=== PATIENT | male | born 1990 | race Caucasian/White ===

== ENCOUNTER 2016-10-27 00:43 | Emergency (ER) | payer OTHER ==
[2016-10-27 03:32] LABS: Hematocrit 48 % (42-52); Hemoglobin 15.8 g/dl (14.0-18.0); Mean Corpuscular HGB Conc 33 g/dl (31-36); Mean Corpuscular Hemoglobin 31 pg (27-31); Mean Corpuscular Volume 92 fL (80-94); Mean Platelet Volume 9 um3 (7.4-10.4); Red Blood Count 5.18 10^6/ul (4.0-5.4); Red Cell Distribution Width 13 % (10.5-15); White Blood Count 7.8 10^3/ul (3.5-10.8)
[2016-10-27 03:43] LABS: Albumin 4.2 g/dL (3.2-5.2); Calcium 9.6 mg/dL (8.6-10.3); EGFR African American 104.5 (>60); EGFR Non-African American 81.2 (>60); Globulin 2.9 g/dL (2-4); Potassium 4.3 mmol/L (3.5-5.0); Total Bilirubin 0.5 mg/dL (0.2-1.0); Total Protein 7.1 g/dL (6.4-8.9)
--- NOTE | 2016-10-27 04:59 | ED ---
Aubrey Wynn Rebecca, scribed for Nehemiah Cutler MD on 10/27/16 at 0306 . Upper Extremity Pain - HPI Summary HPI Summary: Pt is a 25 y/o M who presents to ED c/o LUE and LLE numbness (triage note states R-sided, pt explicitly reported L-sided). Sx began at 2230 last night and have been constant since onset, improving at approximately 0030. Additionally c/o tongue numbness/tingling and a "taste like iron" both of which resolved at 0030. Denies fever. Sx aggravated by nothing, alleviated by spontaneous resolution. - History of Current Complaint Chief Complaint: EDExtremityUpper Stated Complaint: RIGHT ARM NUMBNESS Hx Obtained From: Patient Onset/Duration: Started Hours Ago, Still Present Timing: Constant Severity Currently: None - No pain Pain Location: Arm - LUE, Other: - LLE Aggravating Factor(s): Nothing Alleviating Factor(s): Other - Spontaneous reoslution Associated Signs & Symptoms: Positive: Numbness/Tingling - LUE and LLE, Other - Tongue swelling, taste of iron - Allergies/Home Medications Allergies/Adverse Reactions: Allergies Allergy/AdvReac Type Severity Reaction Status Date / Time Bee Venom Allergy Hives Verified 10/27/16 01:23 PMH/Surg Hx/FS Hx/Imm Hx Endocrine/Hematology History: Denies: Hx Diabetes Cardiovascular History: Reports: Hx Hypertension Denies: Hx Hypercholesterolemia - Immunization History Date of Tetanus Vaccine: unk Date of Influenza Vaccine: unk Infectious Disease History: No Infectious Disease History: Denies: Traveled Outside the [place] in Last 30 Days - Family History Known Family History: Positive: Hypertension - Social History Alcohol Use: Occasionally Substance Use Type: Reports: None Smoking Status (MU): Never Smoked Tobacco Review of Systems Negative: Fever Positive: Other - Tongue numbness/tingling and taste of iron - resolved Positive: Numbness - LUE and LLE numbness All Other Systems Reviewed And Are Negative: Yes Physical Exam Triage Information Reviewed: Yes Vital Signs On Initial Exam: Initial Vitals Temp Pulse Resp Pulse Ox 98.3 F 85 16 99 10/27/16 00:45 10/27/16 00:45 10/27/16 00:45 10/27/16 00:45 Vital Signs Reviewed: Yes Appearance: Positive: Well-Appearing, No Pain Distress Skin: Positive: Warm Head/Face: Positive: Normal Head/Face Inspection Eyes: Positive: EOMI, MÓNICA ENT: Positive: Hearing grossly normal Neck: Positive: Supple Respiratory/Lung Sounds: Positive: Clear to Auscultation, Breath Sounds Present Cardiovascular: Positive: RRR Abdomen Description: Positive: Nontender, Soft Bowel Sounds: Positive: Present Musculoskeletal: Positive: Normal, Strength/ROM Intact Neurological: Positive: Sensory/Motor Intact, Alert, Oriented to Person Place, Time, Normal Gait Psychiatric: Positive: Affect/Mood Appropriate - [place] Coma Scale Coma Scale Total: 15 Diagnostics - Vital Signs Vital Signs Temp Pulse Resp BP Pulse Ox 10/27/16 01:21 98.5 F 88 18 139/81 99 10/27/16 00:45 98.3 F 85 16 99 - Laboratory Lab Results: Lab Results 10/27/16 10/27/16 Range/Units 03:21 03:21 WBC 7.8 (3.5-10.8) 10^3/ul RBC 5.18 (4.0-5.4) 10^6/ul Hgb 15.8 (14.0-18.0) g/dl Hct 48 (42-52) % MCV 92 (80-94) fL MCH 31 (27-31) pg MCHC 33 (31-36) g/dl RDW 13 (10.5-15) % Plt Count 234 (150-450) 10^3/ul MPV 9 (7.4-10.4) um3 Neut % (Auto) 53.9 (38-83) % Lymph % (Auto) 35.9 (25-47) % Mcintosh % (Auto) 7.3 (1-9) % Eos % (Auto) 2.2 (0-6) % Baso % (Auto) 0.7 (0-2) % Absolute Neuts (auto) 4.2 (1.5-7.7) 10^3/ul Absolute Lymphs (auto) 2.8 (1.0-4.8) 10^3/ul Absolute Monos (auto) 0.6 (0-0.8) 10^3/ul Absolute Eos (auto) 0.2 (0-0.6) 10^3/ul Absolute Basos (auto) 0.1 (0-0.2) 10^3/ul Absolute Nucleated RBC 0 10^3/ul Nucleated RBC % 0 Sodium 135 (133-145) mmol/L Potassium 4.3 (3.5-5.0) mmol/L Chloride 102 (101-111) mmol/L Carbon Dioxide 28 (22-32) mmol/L Anion Gap 5 (2-11) mmol/L BUN 19 (6-24) mg/dL Creatinine 1.12 (0.67-1.17) mg/dL Est GFR ( Amer) 104.5 (>60) Est GFR (Non-Af Amer) 81.2 (>60) BUN/Creatinine Ratio 17.0 (8-20) Glucose 111 H (70-100) mg/dL Calcium 9.6 (8.6-10.3) mg/dL Total Bilirubin 0.50 (0.2-1.0) mg/dL AST 17 (13-39) U/L ALT 26 (7-52) U/L Alkaline Phosphatase 77 (34-104) U/L Total Protein 7.1 (6.4-8.9) g/dL Albumin 4.2 (3.2-5.2) g/dL Globulin 2.9 (2-4) g/dL Albumin/Globulin Ratio 1.4 (1-3) Result Diagrams: 10/27/16 03:21 10/27/16 03:21 Lab Statement: Any lab studies that have been ordered have been reviewed, and results considered in the medical decision making process. - CT Brain CT CT Interpretation: No Acute Changes - Normal head CT Interpretation Completed By: Radiologist Re-Evaluation - Re-Evaluation First Eval Change: Improved - results d/w pt Course/Dx - Course Assessment/Plan: Pt is a 25 y/o M who presents to ED c/o LUE and LLE numbness ( triage note states R-sided, pt explicitly reported L-sided). Sx began at 2230 last night and have been constant since onset, improving at approximately 0030. Additionally c/o tongue numbness/tingling and a "taste like iron" both of which resolved at 0030. Denies fever. Sx aggravated by nothing, alleviated by spontaneous resolution. Brain CT reveals no acute findings. Pt will be D/C to home with Dx of paresthesia. He understands and agrees. - Diagnoses Provider Diagnoses: Paresthesia Discharge - Discharge Plan Condition: Stable Disposition: HOME Patient Education Materials: Paresthesia (ED) Referrals: Azael Riddle MD [Primary Care Provider] - 3 Days The documentation as recorded by the Aubrey esposito Rebecca accurately reflects the service I personally performed and the decisions made by me, Nehemiah Cutler MD.
[2016-10-27 05:30] VITALS: BP 129/71
--- NOTE | 2016-10-27 07:23 | RAD ---
INDICATION: Head injury. COMPARISON: There are no prior studies available for comparison. TECHNIQUE: Contiguous axial sections of the brain were obtained from the skull base to the vertex without contrast. FINDINGS: The ventricles, cisterns and sulci are within normal limits. No significant focal abnormality or mass effect is seen. There is no evidence for hemorrhage. No significant focal osseous abnormality is seen. The visualized portion of the paranasal sinuses and mastoid air cells appear clear. IMPRESSION: NO EVIDENCE FOR ACUTE INTRACRANIAL ABNORMALITY.
== END 2016-10-27 05:32 | disposition home or self-care (01) ==
LOC: ED 00:43
DX: R20.9 Unspecified disturbances of skin sensation (principal); I10 Essential (primary) hypertension
CPT/HCPCS: 36415; 70450; 80053; 85025; 99282

== ENCOUNTER 2019-06-22 07:03 | Emergency (ER) | payer BC, OTHER ==
--- NOTE | 2019-06-22 07:47 | UC ---
Headache HPI - HPI Summary HPI Summary: 28-year-old male comes in with a chief complaint of blurred vision and headache. 's morning woke up with blurred vision primarily in the peripheral areas and also having a right parietal headache. Patient expected ibuprofen the headache is improved now has no vision changes. Did check his blood pressure during this episode and noticed it was high. No prior history of hypertension or diagnosed migraines. Reports seeing ophthalmology one month ago with normal evaluation. Does not use glasses or contacts. No nausea no photophobia no weakness or numbness or difficulty with speech. No recent trauma. - History Of Current Complaint Chief Complaint: UCHeadache Stated Complaint: HEADACHE,HIGH BP,NAUSEA Time Seen by Provider: 06/22/19 07:16 Pain Intensity: 3 - Allergies/Home Medications Allergies/Adverse Reactions: Allergies Allergy/AdvReac Type Severity Reaction Status Date / Time MS Bee Venom [Bee Venom] Allergy Hives Verified 06/22/19 07:32 Home Medications: Home Medications NK [No Home Medications Reported] 08/04/15 [History Confirmed 06/22/19] PMH/Surg Hx/FS Hx/Imm Hx Previously Healthy: Yes - Surgical History Surgical History: None - Family History Known Family History: Positive: None, Hypertension - Social History Alcohol Use: Occasionally Substance Use Type: None Smoking Status (MU): Never Smoked Tobacco Review of Systems All Other Systems Reviewed And Are Negative: Yes Constitutional: Positive: Other - see hpi Skin: Positive: Negative Eyes: Positive: Blurred Vision, Other - see hpi ENT: Positive: Negative Respiratory: Positive: Negative Cardiovascular: Positive: Negative Gastrointestinal: Positive: Negative Motor: Positive: Negative Neurovascular: Positive: Negative Musculoskeletal: Positive: Negative Neurological/Mental Status: Positive: Headache Psychological: Positive: Anxious Is Patient Immunocompromised?: No Physical Exam Triage Information Reviewed: Yes Appearance: Well-Appearing, No Pain Distress, Well-Nourished Vital Signs: Initial Vital Signs Temp 98.4 F 06/22/19 07:33 Pulse 85 06/22/19 07:33 Resp 18 06/22/19 07:33 BP 160/84 06/22/19 07:33 Pulse Ox 100 06/22/19 07:33 Vital Signs Reviewed: Yes Eye Exam: Normal Eyes: Positive: Conjunctiva Clear, Other: - PERRLA EOMI. No photophobia. ENT: Positive: Pharynx normal, TMs normal Neck: Positive: Supple Respiratory: Positive: Lungs clear, Normal breath sounds, No respiratory distress Cardiovascular: Positive: RRR Musculoskeletal: Positive: Strength Intact, ROM Intact Neurological: Positive: Alert, Muscle Tone Normal Psychological: Positive: Age Appropriate Behavior Skin Exam: Normal Headache Course/Dx - Course Course Of Treatment: Undercollar Baster: Wyatt Peterson Daniel ([id number]) Sales Service Promoter: YUMIKO ( NUANCE) Report Date: 06/22/2019 08:38:00 Report Status: Final ====== Start of Report Content Patient Name: MILES GARZA Medical Record#: [id number] Ordering Physician: Anuj Reyes MD Acct.#: [id number] : Age: 28 Sex: M Location: [facility] Exam Date: 06/22/19 0741 ADM Status: REG ER Order Information: CT BRAIN WO Accession Number: [id number] CPT: 08295 HISTORY: rt delacruz,blurred vision COMPARISONS: October 27, 2016 TECHNIQUE: Multiple contiguous axial CT scans were obtained of the head without intravenous contrast. Coronal and sagittal multiplanar reformations are also submitted for review. FINDINGS: HEMORRHAGE/INFARCT: There is no hemorrhage or acute infarct. MASSES/SHIFT: There is no mass or shift. EXTRA-AXIAL SPACES: There are no extra-axial fluid collections. SULCI AND VENTRICLES: The sulci and ventricles are normal in size and position for the patient's stated age. CEREBRUM: There are no focal parenchymal abnormalities. BRAINSTEM: There are no focal parenchymal abnormalities. CEREBELLUM: There are no focal parenchymal abnormalities. VESSELS: The vessels are grossly normal. PARANASAL SINUSES: The paranasal sinuses are clear. ORBITS: The orbits are unremarkable. BONES AND SOFT TISSUE: No bone or soft tissue abnormalities are noted. OTHER: None IMPRESSION: NO ACUTE INTRACRANIAL PATHOLOGY. <Electronically signed by Wyatt Peterson MD in OV > 06/22/19833 Dictated By: Wyatt Peterson MD Dictated Date/Time: 832 Transcribed Date/Time: 06/22/19832 Copy to: CC:Azael Riddle MD; Anuj Reyes MD Imaging - [facility] [address] [facility] [address] ph ([phone]) ph ) ph ([phone]) End of Report Content I discussed the CT results with the patient. We rechecked his blood pressure when he was less anxious and it was normal. With the visual changes occurring just before the headache starts migraine with visual aura is highly probable. Patient also reports a normal ophthalmology examination one month ago. For both a recheck of the blood pressure and for the headaches patient's went to follow- up with his primary care doctor. For the headaches he can also follow-up with neurology. Patient is to get reevaluated sooner if worse or any questions or concerns. - Differential Dx/Diagnosis Provider Diagnosis: Headache, Blurred vision, bilateral, Elevated blood pressure reading Discharge ED - Sign-Out/Discharge Documenting (check all that apply): Patient Departure All imaging exams completed and their final reports reviewed: Yes - Discharge Plan Condition: Stable Disposition: HOME Patient Education Materials: Acute Headache (ED), Blurred Vision (ED) Referrals: Azael Riddle MD [Primary Care Provider] - [facility] [place] [facility] REFERRAL [Outside] Edmundo Butler MD [Medical Doctor] - Additional Instructions: FOLLOW UP WITH YOUR PRIMARY CARE DOCTOR FOR YOUR HEADACHE/BLURRED VISION AND INTERMITTENT ELEVATED BLOOD PRESSURE. FOLLOW UP WITH NEUROLOGY FOR YOUR HEADACHES. GET REVALUATED SOONER IF NOT IMPROVED OR WORSE OR ANY QUESTIONS OR CONCERNS. - Billing Disposition and Condition Condition: STABLE Disposition: Home
[2019-06-22 09:00] VITALS: BP 110/56
== END 2019-06-22 09:19 | disposition home or self-care (01) ==
LOC: UCEAST 07:03
DX: R51 Headache (principal); R03.0 Elevated blood-pressure reading, without diagnosis of hypertension; H53.8 Other visual disturbances; Z91.030 Bee allergy status
CPT/HCPCS: 70450; 99201; G0463